=== PATIENT | male | born 1950 | race Two or more races ===

== ENCOUNTER 2017-08-03 17:21 | Inpatient (IN) | payer MEDICARE, BC ==
[2017-08-03] MEDS ORDERED: GABA600T2 PO (18:19)
[2017-08-03] MEDS ORDERED: BUPR1FIL3 SL (18:19)
[2017-08-03] MEDS ORDERED: ESCI5TAB PO (18:19)
[2017-08-03] MEDS ORDERED: BUPR75TA21 PO (18:19)
[2017-08-03] MEDS ORDERED: CLON0.5T4 PO (18:19)
[2017-08-03] MEDS ORDERED: OXYB5TAB11 PO (18:19)
[2017-08-03] MEDS ORDERED: MONT10TA22 PO (18:19)
[2017-08-03] MEDS ORDERED: DULO60CA45 PO (18:19)
[2017-08-03] MEDS: LORAZEPAM 0.5 MG TABLET PO PRN (20:50)
[2017-08-03] MEDS: TEMAZEPAM 7.5 MG CAPSULE PO PRN (22:09)
[2017-08-03] MEDS: ACETAMINOPHEN 325 MG TABLET PO PRN (22:09)
[2017-08-04] MEDS: LORAZEPAM 0.5 MG TABLET PO PRN (09:17)
[2017-08-04] MEDS: MONTELUKAST SODIUM (10MG) 10 MG TABLET PO SCH (17:36)
[2017-08-04] MEDS: TEMAZEPAM 7.5 MG CAPSULE PO PRN (21:22)
[2017-08-04] MEDS: QUETIAPINE FUMARATE 25 MG TABLET PO SCH (21:22)
[2017-08-05] MEDS: OXYBUTYNIN CHLORIDE 5 MG TABLET PO SCH (08:32)
[2017-08-05] MEDS: ESCITALOPRAM OXALATE (10 MG) 10 MG TABLET PO SCH (08:32)
[2017-08-05] MEDS ORDERED: POTASSIUM CHLORIDE 20 MEQ TAB.PRT.SR PO SCH ×2 (11:00→12:30)
[2017-08-05] MEDS ORDERED: POTASSIUM CHLORIDE 20 MEQ TAB.PRT.SR PO ONE (12:30)
[2017-08-05] MEDS ORDERED: DEXTROSE 50%-WATER 50 ML DISP.SYRIN IV PRN (12:30)
[2017-08-05] MEDS: METFORMIN 500 MG TABLET PO SCH (16:43)
[2017-08-05] MEDS: BLOOD SUGAR DIAGNOSTIC 1 EACH STRIP IN SCH ×2 (17:29→22:00)
[2017-08-05] MEDS: MONTELUKAST SODIUM (10MG) 10 MG TABLET PO SCH (18:17)
[2017-08-05] MEDS: QUETIAPINE FUMARATE 25 MG TABLET PO SCH (21:10)
[2017-08-05] MEDS: TEMAZEPAM 7.5 MG CAPSULE PO PRN (21:11)
[2017-08-06] MEDS: BLOOD SUGAR DIAGNOSTIC 1 EACH STRIP IN SCH ×4 (08:11→21:33)
[2017-08-06] MEDS: INSULIN REGULAR, HUMAN 100 UNIT/ML 3 ML VIAL SQ PRN (08:19)
[2017-08-06] MEDS: OXYBUTYNIN CHLORIDE 5 MG TABLET PO SCH (08:51)
[2017-08-06] MEDS: ESCITALOPRAM OXALATE (10 MG) 10 MG TABLET PO SCH (08:51)
[2017-08-06] MEDS: METFORMIN 500 MG TABLET PO SCH ×2 (08:53→17:28)
[2017-08-06] MEDS: MONTELUKAST SODIUM (10MG) 10 MG TABLET PO SCH (18:11)
[2017-08-06] MEDS: QUETIAPINE FUMARATE 25 MG TABLET PO SCH (20:48)
[2017-08-06] MEDS: TEMAZEPAM 7.5 MG CAPSULE PO PRN (20:48)
[2017-08-06] MEDS: LORAZEPAM 0.5 MG TABLET PO PRN (23:41)
[2017-08-07] MEDS: BLOOD SUGAR DIAGNOSTIC 1 EACH STRIP IN SCH ×4 (07:30→21:07)
[2017-08-07] MEDS: ESCITALOPRAM OXALATE (10 MG) 10 MG TABLET PO SCH (08:13)
[2017-08-07] MEDS: METFORMIN 500 MG TABLET PO SCH ×2 (08:13→16:21)
[2017-08-07] MEDS: OXYBUTYNIN CHLORIDE 5 MG TABLET PO SCH (08:13)
[2017-08-07] MEDS ORDERED: Z GUARD REMEDY 2 OZ OINT TP PRN (14:00)
[2017-08-07] MEDS: LORAZEPAM 0.5 MG TABLET PO PRN (15:04)
[2017-08-07] MEDS: MONTELUKAST SODIUM (10MG) 10 MG TABLET PO SCH (18:17)
[2017-08-07] MEDS: TEMAZEPAM 7.5 MG CAPSULE PO PRN (21:00)
[2017-08-07] MEDS: QUETIAPINE FUMARATE 25 MG TABLET PO SCH (21:00)
[2017-08-07] MEDS: MAG HYDROX/AL HYDROX/SIMETH 30 ML UDC PO PRN (21:26)
[2017-08-08] MEDS: BLOOD SUGAR DIAGNOSTIC 1 EACH STRIP IN SCH ×4 (07:48→21:05)
[2017-08-08] MEDS: METFORMIN 500 MG TABLET PO SCH ×2 (08:43→16:52)
[2017-08-08] MEDS: OXYBUTYNIN CHLORIDE 5 MG TABLET PO SCH (08:43)
[2017-08-08] MEDS: ESCITALOPRAM OXALATE (10 MG) 10 MG TABLET PO SCH (08:43)
[2017-08-08] MEDS: Z GUARD REMEDY 2 OZ OINT TP SCH (08:44)
[2017-08-08] MEDS: LORAZEPAM 0.5 MG TABLET PO PRN ×2 (14:06→21:06)
[2017-08-08] MEDS: MAG HYDROX/AL HYDROX/SIMETH 30 ML UDC PO PRN ×2 (15:40→21:05)
[2017-08-08] MEDS: MONTELUKAST SODIUM (10MG) 10 MG TABLET PO SCH (17:00)
[2017-08-08] MEDS: QUETIAPINE FUMARATE 25 MG TABLET PO SCH (21:05)
[2017-08-08] MEDS: TEMAZEPAM 7.5 MG CAPSULE PO PRN (21:49)
[2017-08-08] MEDS: INSULIN REGULAR, HUMAN 100 UNIT/ML 3 ML VIAL SQ PRN (22:04)
[2017-08-09] MEDS: BLOOD SUGAR DIAGNOSTIC 1 EACH STRIP IN SCH ×4 (08:04→21:01)
[2017-08-09] MEDS: ESCITALOPRAM OXALATE (10 MG) 10 MG TABLET PO SCH (08:10)
[2017-08-09] MEDS: OXYBUTYNIN CHLORIDE 5 MG TABLET PO SCH (08:10)
[2017-08-09] MEDS: METFORMIN 500 MG TABLET PO SCH ×2 (08:10→16:18)
[2017-08-09] MEDS: LORAZEPAM 0.5 MG TABLET PO PRN ×3 (08:10→20:58)
[2017-08-09] MEDS: Z GUARD REMEDY 2 OZ OINT TP SCH (08:13)
[2017-08-09] MEDS: MAGNESIUM HYDROXIDE 30 ML UDC PO PRN (16:18)
[2017-08-09] MEDS: MONTELUKAST SODIUM (10MG) 10 MG TABLET PO SCH (18:37)
[2017-08-09] MEDS: MAG HYDROX/AL HYDROX/SIMETH 30 ML UDC PO PRN (20:59)
[2017-08-09] MEDS: QUETIAPINE FUMARATE 25 MG TABLET PO SCH (21:37)
[2017-08-09] MEDS: TEMAZEPAM 7.5 MG CAPSULE PO PRN (21:37)
[2017-08-10] MEDS: BLOOD SUGAR DIAGNOSTIC 1 EACH STRIP IN SCH ×4 (07:15→21:54)
[2017-08-10] MEDS: METFORMIN 500 MG TABLET PO SCH ×2 (08:03→16:45)
[2017-08-10] MEDS: OXYBUTYNIN CHLORIDE 5 MG TABLET PO SCH (08:03)
[2017-08-10] MEDS: ESCITALOPRAM OXALATE (10 MG) 10 MG TABLET PO SCH (08:03)
[2017-08-10] MEDS: Z GUARD REMEDY 2 OZ OINT TP SCH (08:03)
[2017-08-10] MEDS: LORAZEPAM 0.5 MG TABLET PO PRN ×3 (10:02→22:09)
[2017-08-10] MEDS: MONTELUKAST SODIUM (10MG) 10 MG TABLET PO SCH (18:05)
[2017-08-10] MEDS: MAG HYDROX/AL HYDROX/SIMETH 30 ML UDC PO PRN (21:12)
[2017-08-10] MEDS: QUETIAPINE FUMARATE 25 MG TABLET PO SCH (21:13)
[2017-08-10] MEDS: TEMAZEPAM 7.5 MG CAPSULE PO PRN (23:05)
[2017-08-11] MEDS: BLOOD SUGAR DIAGNOSTIC 1 EACH STRIP IN SCH ×4 (07:42→21:13)
[2017-08-11] MEDS: OXYBUTYNIN CHLORIDE 5 MG TABLET PO SCH (08:03)
[2017-08-11] MEDS: METFORMIN 500 MG TABLET PO SCH ×2 (08:03→16:13)
[2017-08-11] MEDS: ESCITALOPRAM OXALATE (10 MG) 10 MG TABLET PO SCH (08:04)
[2017-08-11] MEDS: Z GUARD REMEDY 2 OZ OINT TP SCH (08:04)
[2017-08-11] MEDS: ACETAMINOPHEN 325 MG TABLET PO PRN (08:28)
[2017-08-11] MEDS: LORAZEPAM 0.5 MG TABLET PO PRN ×3 (09:59→22:13)
[2017-08-11] MEDS: INSULIN REGULAR, HUMAN 100 UNIT/ML 3 ML VIAL SQ PRN (12:09)
[2017-08-11] MEDS: MAGNESIUM HYDROXIDE 30 ML UDC PO PRN (16:15)
[2017-08-11] MEDS: MONTELUKAST SODIUM (10MG) 10 MG TABLET PO SCH (17:03)
[2017-08-11] MEDS: MAG HYDROX/AL HYDROX/SIMETH 30 ML UDC PO PRN (20:15)
[2017-08-11] MEDS: QUETIAPINE FUMARATE 25 MG TABLET PO SCH (21:13)
[2017-08-11] MEDS: TEMAZEPAM 7.5 MG CAPSULE PO PRN (21:13)
[2017-08-12] MEDS: BLOOD SUGAR DIAGNOSTIC 1 EACH STRIP IN SCH ×4 (07:30→21:29)
[2017-08-12] MEDS: LORAZEPAM 0.5 MG TABLET PO PRN ×3 (08:57→23:36)
[2017-08-12] MEDS: OXYBUTYNIN CHLORIDE 5 MG TABLET PO SCH (08:58)
[2017-08-12] MEDS: ESCITALOPRAM OXALATE (10 MG) 10 MG TABLET PO SCH (08:58)
[2017-08-12] MEDS: METFORMIN 500 MG TABLET PO SCH ×2 (08:58→17:29)
[2017-08-12] MEDS: Z GUARD REMEDY 2 OZ OINT TP SCH (08:59)
[2017-08-12] MEDS: ACETAMINOPHEN 325 MG TABLET PO PRN (15:18)
[2017-08-12] MEDS: MONTELUKAST SODIUM (10MG) 10 MG TABLET PO SCH (18:22)
[2017-08-12] MEDS: MAG HYDROX/AL HYDROX/SIMETH 30 ML UDC PO PRN ×2 (18:23→21:35)
[2017-08-12] MEDS: TEMAZEPAM 7.5 MG CAPSULE PO PRN (21:24)
[2017-08-12] MEDS: QUETIAPINE FUMARATE 25 MG TABLET PO SCH (21:24)
[2017-08-13] MEDS: OXYBUTYNIN CHLORIDE 5 MG TABLET PO SCH (08:08)
[2017-08-13] MEDS: METFORMIN 500 MG TABLET PO SCH (08:08)
[2017-08-13] MEDS: ESCITALOPRAM OXALATE (10 MG) 10 MG TABLET PO SCH (08:08)
[2017-08-13] MEDS: BLOOD SUGAR DIAGNOSTIC 1 EACH STRIP IN SCH ×2 (08:52→14:01)
[2017-08-13] MEDS: Z GUARD REMEDY 2 OZ OINT TP SCH (09:00)
== END 2017-08-13 15:10 | disposition home or self-care (01) | DRG 881 ==
DX: F32.9 Major depressive disorder, single episode, unspecified (principal); F03.91 Unspecified dementia, unspecified severity, with behavioral disturbance; R45.851 Suicidal ideations; F29 Unspecified psychosis not due to a substance or known physiological condition; Z73.6 Limitation of activities due to disability; J45.20 Mild intermittent asthma, uncomplicated; K21.9 Gastro-esophageal reflux disease without esophagitis; E86.0 Dehydration; E11.9 Type 2 diabetes mellitus without complications; F43.10 Post-traumatic stress disorder, unspecified; I70.90 Unspecified atherosclerosis